=== PATIENT | male | born 2000 | race Caucasian/White ===

== ENCOUNTER 2023-11-12 13:01 | Outpatient (CLI) | payer BC | END 2023-11-12 23:59 | disposition home or self-care (01) | LOC: MRI 13:01 | PROVIDERS: ATTEND Family Medicine Sports Medicine | DX: M17.12 Unilateral primary osteoarthritis, left knee (principal); M77.9 Enthesopathy, unspecified; M25.562 Pain in left knee; R60.9 Edema, unspecified | CPT/HCPCS: 73721 ==